=== PATIENT | female | born 1960 | race Two or more races ===

== ENCOUNTER 2020-02-07 20:50 | Emergency (ER) | payer OTHER ==
[~2020-02-07] VITALS: Ht 162.6 cm; Wt 77.1 kg
--- NOTE | 2020-02-07 20:50 | NUR ---
ED Nurse Note: spoke with orlando from [facility], states that they are willing to accept patient once patient is cleared.
[2020-02-07 21:00] VITALS: BP 210/74
[2020-02-07] MEDS ORDERED: Labetalol 5mg/ml 20ml vial IV ONE ×2 (21:00→21:45)
--- NOTE | 2020-02-07 21:00 | NUR ---
ED Nurse Note: Patient brought into ED by PONCHO Mott from [facility] for c/o HTN. Patient was being accepted at the facility, but blood pressure was too elevated per the SNF protocol. Patient is aaox4, breathing is normal and unlabored. Patient has no medical complaint at this time. Denies CLOUD, blurry vision, SOB, CP. Patient connected to alarm security or surveillance monitor and BP noted to be 210/74. All safety measures met; will continue to monitor. Patient has R sided defecits due to recent stroke.
--- NOTE | 2020-02-07 21:04 | Emergency Room Report ---
History of Present Illness General Chief Complaint: Hypertension Source: Patient, EMS Present Illness HPI Patient is a 59-year-old female past medical history of CVA 2 weeks ago with residual slurred speech and right-sided deficits who presents to the ER for elevated blood pressure. Patient was transported to an extended care facility for post stroke rehab and was found to have elevated blood pressure. Per patient she complains of dizziness. She denies any headache, chest pain, shortness of breath, abdominal pain, nausea or vomiting. She denies any increase in her weakness. She states that she has had elevated blood pressure all day. She does not believe that she was given her blood pressure medications. Allergies: Coded Allergies: No Known Allergies (Unverified , 02/07/20) COVID-19 Screening Contact w/high risk pt: Yes Experienced COVID-19 symptoms?: No COVID-19 Testing performed HEALTH NAVIGATOR: No Patient History Now: No Reviewed Nursing Documentation: PMH: Agreed; PSxH: Agreed Review of Systems All Other Systems: negative except mentioned in HPI Physical Exam Vital Signs Date Time Temp Pulse Resp B/P (MAP) Pulse Ox O2 Delivery O2 Flow Rate FiO2 02/07/20 20:51 97.5 76 16 220/107 (144) 100 Room Air Sp02 EP Interpretation: reviewed, normal General Appearance: no apparent distress, alert, GCS 15, non-toxic Head: normocephalic, atraumatic Eyes: bilateral eye normal inspection, bilateral eye PERRL ENT: hearing grossly normal, normal pharynx, no angioedema, normal voice Neck: full range of motion, supple/symm/no masses Respiratory: chest non-tender, lungs clear, normal breath sounds, speaking full sentences Cardiovascular #1: regular rate, rhythm, no edema Gastrointestinal: normal bowel sounds, non tender, soft, non-distended, no guarding, no rebound Genitourinary: no CVA tenderness Musculoskeletal: other - Right upper and lower extremity motor weakness Neurologic: other - slurred Speech Psychiatric: judgement/insight normal Skin: no rash Lymphatic: no adenopathy Procedures Critical Care Time Critical Care Time Total critical care time: Approximately 35 minutes. Due to a high probability of clinically significant, life threatening deterioration, the patient required my highest level of preparedness to intervene emergently and I personally spent this critical care time directly and personally managing the patient. This crit ical care time included obtaining a history; examining the patient; pulse oximetry; ordering and review of studies; arranging urgent treatment with development of a management plan; evaluation of patient's response to treatment; frequent reassessment; and, discussions with other providers.This critical care time was performed to assess and manage the high probability of imminent, life- threatening deterioration that could result in multi-organ failure. It was exclusive of separately billable procedures and treating other patients and teaching time. Please see MDM section and the rest of the note for further information on patient assessment and treatment. Medical Decision Making Diagnostic Impression: Primary Impression: Malignant hypertension ER Course Patient initially extremely hypertensive with symptoms of dizziness. Patient states that she had not been given her blood pressure medications all day. She denied having any other symptoms. ER work-up demonstrates old CVA. No acute renal insufficiency. Patient has been chest pain-free. Patient given IV labetalol and hydralazine. Patient's blood pressures improved. After discussing risks and benefits of further diagnostics, treatment plans, as well as indications for and risks of admission, the patient is agreeable to being discharged home. I have explained that their evaluation and treatment in the emergency department today is an important step towards them achieving better health but that their evaluation today is not intended to replace further evaluation and treatment by a physician in their local clinic. I have explained that while the current findings suggest no immediate life threatening emergency they will require further evaluation and treatment by a physician of their choice in their area. They understand that it will be necessary for them to review the final reports of their ED visit with their clinic physician. We have reviewed indications for return to the Emergency Department. I have explained that additional time may need to pass and/or additional testing as an outpatient may be necessary before a definitive diagnosis can be made. They tell me they are willing to follow up as instructed within the timeframe I recommend. They appear to understand what we discussed. Additionally they understand that if they are unable to be seen by an outpatient physician they are welcome, and in fact should, return to the Emergency Department for a repeat evaluation. The p atient is stable at time of discharge. Labs Test 02/07/20 21:05 White Blood Count 8.7 K/UL (4.8-10.8) Red Blood Count 5.34 M/UL (4.20-5.40) Hemoglobin 15.6 G/DL (12.0-16.0) Hematocrit 47.0 % (37.0-47.0) Mean Corpuscular Volume 88 FL (80-99) Mean Corpuscular Hemoglobin 29.2 PG (27.0-31.0) Mean Corpuscular Hemoglobin Concent 33.2 G/DL (32.0-36.0) Red Cell Distribution Width 12.7 % (11.6-14.8) Platelet Count 271 K/UL (150-450) Mean Platelet Volume 9.4 FL (6.5-10.1) Neutrophils (%) (Auto) 57.3 % (45.0-75.0) Lymphocytes (%) (Auto) 33.4 % (20.0-45.0) Monocytes (%) (Auto) 7.1 % (1.0-10.0) Eosinophils (%) (Auto) 1.3 % (0.0-3.0) Basophils (%) (Auto) 1.0 % (0.0-2.0) Sodium Level 141 MMOL/L (136-145) Potassium Level 3.8 MMOL/L (3.5-5.1) Chloride Level 104 MMOL/L (98-107) Carbon Dioxide Level 24 MMOL/L (21-32) Anion Gap 13 mmol/L (5-15) Blood Urea Nitrogen 17 mg/dL (7-18) Creatinine 0.6 MG/DL (0.55-1.30) Estimat Glomerular Filtration Rate > 60 mL/min (>60) Glucose Level 128 MG/DL (74-106) Calcium Level 9.2 MG/DL (8.5-10.1) EKG Diagnostic Results Troponin ordered: No - EKG ordered for elevated blood pressure EKG Time: 21:08 EP Interpretation: Anabelle Ko MD Rate: normal Rhythm: NSR ST Segments: no acute changes ASA given to the pt in ED: No Rhythm Strip Diag. Results Rhythm Strip Time: 21:04 EP Interpretation: yes - Anabelle Ko MD Rate: 64 bpm Rhythm: NSR, no PVC's, no ectopy Last Vital Signs Date Time Temp Pulse Resp B/P (MAP) Pulse Ox O2 Delivery O2 Flow Rate FiO2 02/07/20 21:00 97.5 79 21 210/74 97 Room Air Disposition: SNF Condition: Stable Additional Instructions: The patient was provided with discharge instructions, notified to follow-up with a primary care doctor and or specialist in the next 24-48 hours, and to return to the ED if they have worsening of their symptoms. Please note that this report is being documented using [employer] technology. This can lead to erroneous entry secondary to incorrect interpretation by the dictating instrument. Anabelle Ko M.D. Feb 07, 2020 21:04
[2020-02-07 21:23] LABS: EOSINOPHILS % (AUTO) 1.3 % (0.0-3.0); HEMOGLOBIN 15.6 G/DL (12.0-16.0); LYMPHOCYTES % (AUTO) 33.4 % (20.0-45.0); MEAN CORPUSCULAR VOLUME 88 FL (80-99); MONOCYTES % (AUTO) 7.1 % (1.0-10.0); NEUTROPHILS % (AUTO) 57.3 % (45.0-75.0); PLATELET COUNT 271 K/UL (150-450); RED BLOOD COUNT 5.34 M/UL (4.20-5.40); RED CELL DISTRIBUTION WIDTH 12.7 % (11.6-14.8); WHITE BLOOD COUNT 8.7 K/UL (4.8-10.8)
[2020-02-07 21:28] VITALS: BP 169/61
[2020-02-07 21:31] LABS: ANION GAP 13 mmol/L (5-15); BLOOD UREA NITROGEN 17 mg/dL (7-18); CALCIUM 9.2 MG/DL (8.5-10.1); CARBON DIOXIDE 24 MMOL/L (21-32); CHLORIDE 104 MMOL/L (98-107); CREATININE 0.6 MG/DL (0.55-1.30); POTASSIUM 3.8 MMOL/L (3.5-5.1); SODIUM 141 MMOL/L (136-145)
[2020-02-07] MEDS ORDERED: cloNIDine 0.2mg Tab ORAL ONE (21:45)
--- NOTE | 2020-02-07 22:26 | Diagnostic Imaging Report ---
EXAM: CT Head Without Intravenous Contrast CLINICAL HISTORY: DIZZY TECHNIQUE: Axial computed tomography images of the head/brain without intravenous contrast. CTDI is 53.4 mGy and DLP is 938.7 mGy-cm. One or more of the following dose reduction techniques were used: automated exposure control, adjustment of the mA and/or kV according to patient size, use of iterative reconstruction technique. COMPARISON: No relevant prior studies available. FINDINGS: Brain: patchy foci of low attenuation in the periventricular white matter most consistent with chronic small vessel disease. Multiple low- attenuation lesions in the brain stem consistent with areas of infarct that are likely chronic. However recommend MRI if there are clinical/neurologic indicators of acute brain stem stroke. Negative for intracranial hemorrhage. There are multiple small foci of parenchymal calcifications that can be seen as sequela from infectious or inflammatory processes, including but not limited to neurocysticercosis. Ventricles: Unremarkable. No ventriculomegaly. Bones/joints: Unremarkable. No acute fracture. Soft tissues: Unremarkable. Sinuses: Unremarkable as visualized. No acute sinusitis. Mastoid air cells: Unremarkable as visualized. No mastoid effusion. IMPRESSION: findings consistent with brainstem infarcts that are likely chronic, however recommend MRI if there are clinical/neurologic indicators of acute brain stem abnormality.
[2020-02-07 22:30] VITALS: BP 183/69
--- NOTE | 2020-02-07 22:30 | NUR ---
ED Nurse Note: Patient BP 183/69 at this time with HR of 63. ERMD Yomtubian verbal order hydralazine 10mg IVP 1x now. ERMD unable to place order in eMAR. Will administer hydralazine; override in pyxis.
[2020-02-07 23:30] VITALS: BP 120/48
--- NOTE | 2020-02-07 23:30 | NUR ---
ED Nurse Note: Pt BP is stable at this time, see vitals flow sheet. NAD noted. Patient has eyes closed, does not appear to be in any distress. Awaiting on ambulance transport. Will continue to monitor.
[2020-02-08 00:45] VITALS: BP 139/53
--- NOTE | 2020-02-08 00:45 | NUR ---
ED Nurse Note: Patient is stable for transfer back to facility as ordered by ERMD at this time. Patient being transported by [facility] BLS unit [id number]. Patient BP is stable; 139/53 at time of ER departure. Patient is aaox4, breathing is normal. IV removed without complication. Pt took all belongings.
--- NOTE | 2020-02-08 15:50 | Cardiology Report ---
APPROVED REPORT EKG Measurement Heart [id number] <Conclusion> Normal sinus rhythm Voltage criteria for left ventricular hypertrophy ST & T wave abnormality, consider lateral ischemia Abnormal ECG
== END 2020-02-08 00:45 | disposition home or self-care (01) ==
LOC: EDBD 20:50 → EMR 21:09
DX: I10 Essential (primary) hypertension (principal); Z86.73 Personal history of transient ischemic attack (TIA), and cerebral infarction without residual deficits
CPT/HCPCS: 36415; 70450; 80048; 85025; 93005; 96374; J0360; Z7502; 99284